=== PATIENT | female | born 1975 | race Caucasian/White ===

== ENCOUNTER → 2024-07-16 12:48 | Outpatient (REF) | payer OTHER, SELFPAY | LOC: HWRAD 12:48 | PROVIDERS: ATTENDING PHYSICIAN Obstetrics & Gynecology Gynecology; FAMILY PHYSICIAN Family Medicine | DX: N95.0 Postmenopausal bleeding (principal) | CPT/HCPCS: 76830; 76856 ==

== ENCOUNTER 2025-03-28 15:52 | Emergency (ER) | payer OTHER, SELFPAY ==
[2025-03-28 16:01] VITALS: BP 147/84
[2025-03-28 16:22] LABS: Hematocrit 39.6 % (37.0-47.0); Hemoglobin 13.4 g/dL (12.0-16.0); Mean Corp Hgb Conc. 33.8 g/dL (33.0-37.0); Mean Corpuscular Volume 86.1 fL (81.0-99.0); Nucleated Red Blood Cells % 0 %; Platelet Count 308 10^3/uL (130-400); Red Cell Dist. Width 12.7 % (11.5-14.5)
[2025-03-28 16:41] LABS: HCG, Serum Qualitative Screen Negative
[2025-03-28 16:42] LABS: ALT (SGPT) 20 U/L (0-35); AST (SGOT) 26 U/L (14-36); Albumin 4.8 g/dl (3.5-5.0); Alkaline Phosphatase 86 U/L (38-126); Blood Urea Nitrogen 8 mg/dl (7-17); Calcium 9.5 mg/dl (8.4-10.2); Carbon Dioxide 26 mmol/L (22-30); Chloride 105 mmol/L (98-107); Glucose 94 mg/dl (70-99); Potassium 4.2 mmol/L (3.5-5.1); Sodium 138 mmol/L (135-145); Total Protein 7.8 g/dl (6.3-8.2); eGFR > 60.00
[2025-03-28 16:49] LABS: Troponin I < 0.012 ng/ml
[2025-03-28 19:08] VITALS: BP 135/91
--- NOTE | 2025-03-28 19:18 | ED.GENMED ---
History of Present Illness
General
Chief Complaint: Chest Pain
Source: patient
Time Seen by Provider: 03/28/25 19:03
History of Present Illness
History of Present Illness:
This patient is a 49-year-old female who presents emergency department with complaints of 'burning' of gradual onset in the center of her chest that started while driving approximately 1:30 PM. This pain is not pleuritic in nature, and not
associated with radiation, neck pain, jaw pain, back pain, abdominal pain. She also felt slightly lightheaded with this. She drinks of water, and felt a little better. She then took a Tums and sat in the parking lot for about 20 minutes and
states that the pain got much better but not completely resolved. By 2 PM, she decided go to the urgent care. There she had a blood sugar check and an ECG and was referred to the emergency department. She states she still has a discomfort
although feels better, including the burning and the lightheadedness. She denies syncope, headache, neck pain, abdominal pain, back pain, jaw pain, nausea, vomiting, fever, chills, leg swelling, recent immobilization, recent trauma. She denies
significant family history with the exception of cancer and a stroke in her grandmother.
Past History
Past History
ED Past Medical History: Psychiatric
ED Past Surgical History: Gynecological ( x 2, prophylactic double mastectomy) and Other (Sinus surgery)
Social History
Tobacco: Non-smoker
Alcohol: None
Drug: None
Personal:
Living: with family
Phy Exam
Physical Exam
Physical Exam:
GENERAL: Alert , in no apparent distress
EYE: pupils equal and reactive
NECK: Supple, no significant adenopathy.
ENT: o/p clr, mmm.
CARDIAC: Regular rate and rhythm .
LUNGS: Clear breath sounds bilaterally, no acute respiratory distress, no wheezes/rales/rhonchi
ABDOMEN: Soft, without focal tenderness, no r/g, no cvat
NEUROLOGICAL: Alert and oriented, no focal neuro deficits
SKIN: Warm and dry, skin intact.
MUSCULOSKELETAL: No edema, well perfused.
PSYCH: Normal and appropriate interaction.
Course
Orders/Labs/Results
Orders:
Orders
03/28/25 15:56
EKG [Electrocardiogram (*1)] Urgent
Reason for Study: Chest Pain
03/28/25 15:58
EKG- Treatment ONCE
03/28/25 16:08
Test Result ONCE
03/28/25 16:16
Complete Blood Count/With Diff Urgent
Comprehensive Metabolic Panel Urgent
HCG, Serum Qualitative Screen Urgent
Troponin I Urgent
03/28/25 19:16
Mag Hydrox/Al Hydrox/Simeth [Maalox] 30 ml Phenobarb/Hyoscy/Atropine/Scop [] 10 ml Viscous Lidocaine 2% [Xylocaine Viscous Cup] 10 ml PO NOW
03/28/25 19:17
Electrocardiogram (*1) Urgent
Reason for Study: Chest Pain
EKG- Treatment ONCE
03/28/25 19:22
Mag Hydrox/Al Hydrox/Simeth [Maalox] 30 ml .ROUTE .STK-MED ONE
Phenobarb/Hyoscy/Atropine/Scop [] 10 ml .ROUTE .STK-MED ONE
Viscous Lidocaine 2% [Xylocaine Viscous Cup] 15 ml .ROUTE .STK-MED ONE
03/28/25 19:46
Troponin I Urgent
Abnormal Lab Results
03/28/25
16:16
Neutrophils % 76.1 H %
(42.2-75.2)
Lymphocytes % 16.2 L %
(20.5-51.1)
03/28/25 16:16
03/28/25 16:16
Vital Signs
Initial and Last Documented VS:
Initial Vital Signs
Temp Pulse Resp BP Pulse Ox
98.6 F 82 18 147/84 100
03/28/25 16:01 03/28/25 16:01 03/28/25 16:01 03/28/25 16:01 03/28/25 16:01
Last Documented Vital Signs
Temp Pulse Resp BP Pulse Ox
98.6 F 83 12 135/91 100
03/28/25 16:01 03/28/25 19:08 03/28/25 19:08 03/28/25 19:08 03/28/25 19:20
*Pulse Oximetry
SaO2: 100
Oxygen Mode of Delivery: Room air
Update Note
Update Note:
Patient presents to the Emergency Department with __burning chest pain
Number and Complexity of Problems Addressed at the Encounter
� Chronic conditions affecting care:
� Acute Exacerbation and/or Progression of Chronic Illness:
� Differential Diagnosis includes: But not limited to ACS, reflux, musculoskeletal pain, anxiety, pneumothorax, pericarditis, etc. etc. etc. etc.
Amount and/or Complexity of Data to be Reviewed and Analyzed
� I performed an independent evaluation of and my interpretation is:
EKG: Read by me, normal sinus rhythm, normal rate, normal axis, no acute ischemia
CT:
Xrays:
Laboratory Studies: Labs unremarkable, repeat troponin also normal
Other:
� Review of other/old records reveals:
� Clinical information was obtained by an independent historian:
� Prescriptions/Medications Considered but not given:
� Further testing considered but not performed:
Risk of Complications and/or Morbidity or Mortality of Patient Management
� Social determinants of health affecting care:
� Discussion with other providers (PCP, Hospitalists, Consultants, etc):
� Escalation of care including admission/observation vs risk of discharge considered: 8:37 PM patient feels better status post GI cocktail. While not diagnostic, in the absence of 'red flag' findings to suggest cardiac related
etiology, etc. There is suspicion that her symptoms could be reflux related. Recommend patient start a daily antacid and follow-up closely with her doctor. I did discuss with her the importance of this follow-up as well as reasons to return the
emergency department. Repeat ECG reviewed by me, no acute ischemia
ED Attending Note
-
Portions of this chart may have been created with voice recognition software.� Occasional wrong word or��sound alike� substitutions may have occurred due to the inherent limitations of voice recognition software.
Discharge Plan
Departure
Patient Disposition: Home (Routine Discharge)
Date of Disposition: 03/28/25
Time of Disposition: 20:38
Patient with high blood pressure during this ER visit?: Yes
Condition: Good
Discharge Problem:
Chest pain
Instructions: Chest Pain PCP Follow Up
Prescriptions:
No Action
hydrocodone-acetaminophen 1 TABLET tablet
1 tab PO Q4HPRN PRN (Reason: severe pain) Qty: 15 0RF
metaxalone [Skelaxin] 800 MG tablet
800 mg PO TIDPRN Qty: 15 0RF
Activity Restrictions/Additional Instructions:
PLEASE SEE YOUR DOCTOR IN CLOSE FOLLOW-UP THIS WEEK. IF YOU DEVELOP INCREASING NEW OR PERSISTENT PAIN, ANY TROUBLE BREATHING, VOMITING, ABDOMINAL PAIN, FEVER, OR OTHER WORRISOME SIGNS, PLEASE RETURN TO THE ER IMMEDIATELY!
Interventions
Interventions:
*Risk Screen - Suicide Last Done: 03/28/25 16:01
*General Assessment Last Done: 03/28/25 16:01
*Neglect/Abuse Screening Last Done: 03/28/25 16:01
Discharge Date and Time
Print Language: MALTESE
[2025-03-28] MEDS: MAALOX 50 PO (19:23)
[2025-03-28 20:20] LABS: Troponin I < 0.012 ng/ml
== END 2025-03-28 21:10 | disposition home or self-care (01) ==
LOC: EMR 15:52
PROVIDERS: Emergency Medicine; EMERGENCY PHYSICIAN Emergency Medicine; FAMILY PHYSICIAN Family Medicine
DX: R07.89 Other chest pain (principal); R42 Dizziness and giddiness; R03.0 Elevated blood-pressure reading, without diagnosis of hypertension; Z88.2 Allergy status to sulfonamides
CPT/HCPCS: 99284; 80053; 84484; 84703; 85025; 93005

== ENCOUNTER → 2025-05-18 16:23 | Outpatient (REF) | payer OTHER, SELFPAY | LOC: RAD 16:23 | PROVIDERS: ATTENDING PHYSICIAN Obstetrics & Gynecology; FAMILY PHYSICIAN Nurse Practitioner Family | DX: N95.0 Postmenopausal bleeding (principal) | CPT/HCPCS: 76830; 76856 ==